=== PATIENT | male | born 1995 | race African-American/Black ===

== ENCOUNTER 2019-09-16 18:11 | Emergency (ER) | payer OTHER ==
[~2019-09-16] VITALS: Ht 177.8 cm; Wt 68.0 kg
[2019-09-16] MEDS ORDERED: NAPROSYN500 MG PO (18:40)
[2019-09-16 19:20] VITALS: BP 101/59
--- NOTE | 2019-09-17 07:37 | EKG ---
[place] [address] [facility] [place] [address] ELECTROCARDIOGRAM REPORT Name: BEAU GARCIA [facility] [id number] Admission: 09/16/19 Attend Phys: Discharge: 09/16/19 Date of : [birth year] Report #: [id number] THIS REPORT FOR: //name// [facility] ED Test Date: 2019-09-16 Test Time: 18:33:18 Pat Name: BEAU GARCIA Department: Room: Gender: [employer] Teacher: BANG : 1995 Requested By: Marcos Elizalde Order Number: [id number] MD: Lawrence Batres Measurements Intervals [place] Rate: 57 P: 52 [place]: 165 QRS: -81 QRSD: 96 T: 48 QT: 395 QTc: 385 Interpretive Statements Sinus bradycardia Left anterior fascicular block No previous ECG available for comparison Electronically Signed On 09-17-2019 7:36:48 BAR TENDER by Lawrence Batres [email or web address] <ELECTRONICALLY SIGNED> By: Lawrence Batres MD, [facility] 09/17/19 0736 1833 1833 Lawrence Batres MD, FACC /EPI
== END 2019-09-16 19:20 ==
LOC: ER 18:11
DX: M94.0 Chondrocostal junction syndrome [Tietze] (principal)